=== PATIENT | female | born 1960 | race American Indian/Alaskan Native ===

== ENCOUNTER 2019-07-04 15:09 | Emergency (ER) | payer SELFPAY ==
[2019-07-04 15:20] VITALS: BP 146/86
[2019-07-04] MEDS ORDERED: predniSONE 20 MG TAB PO ONE (15:42)
[2019-07-04] MEDS ORDERED: CYCLOBENZAPRINE 10 MG TAB PO ONE (15:42)
[2019-07-04] MEDS ORDERED: HYDROcodone/ACETAMINOPHEN 5-325 MG TAB PO ONE (15:42)
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
== END 2019-07-04 17:14 | disposition home or self-care (01) ==
LOC: ED 15:09
DX: S80.02XA Contusion of left knee, initial encounter (principal); S80.01XA Contusion of right knee, initial encounter; S40.012A Contusion of left shoulder, initial encounter; F32.9 Major depressive disorder, single episode, unspecified; Z79.899 Other long term (current) drug therapy; V43.52XA Car driver injured in collision with other type car in traffic accident, initial encounter; Y93.89 Activity, other specified; Y92.410 Unspecified street and highway as the place of occurrence of the external cause; Y99.8 Other external cause status
CPT/HCPCS: 99283; J7512

== ENCOUNTER 2019-07-10 19:20 | Emergency (ER) | payer OTHER ==
[2019-07-10 20:04] VITALS: BP 146/89
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
== END 2019-07-10 23:10 | disposition home or self-care (01) ==
LOC: ED 19:20
DX: M25.562 Pain in left knee (principal); M25.561 Pain in right knee; F32.9 Major depressive disorder, single episode, unspecified; F17.200 Nicotine dependence, unspecified, uncomplicated; Z79.899 Other long term (current) drug therapy; Z91.041 Radiographic dye allergy status; Z88.8 Allergy status to other drugs, medicaments and biological substances; V89.2XXA Person injured in unspecified motor-vehicle accident, traffic, initial encounter; Y93.89 Activity, other specified; Y92.410 Unspecified street and highway as the place of occurrence of the external cause; Y99.8 Other external cause status